=== PATIENT | male | born 1990 | race African-American/Black ===

== ENCOUNTER 2025-01-23 14:24 | Outpatient (AMB) | payer OTHER, SELFPAY ==
--- NOTE | 2025-01-23 14:29 | A.OFFVIS_ITS ---
Intake Visit Reasons: MUSCLE SPASM, DIZZINESS Allergies almond Allergy (Unknown, Verified 01/17/25 13:03) Unknown HPI Comments Details: The patient is a 34-year-old male presenting with recurrent numbness in the right hand and headache management. The numbness is intermittent, typically once a week, beginning in November, lasting around twenty minutes per episode. While some occurrences are associated with heart palpitations, there is no consistent pattern or trigger identifiable. Additionally, he suffers from frequent headaches impacting various regions of the head, characterized by a vice-like quality and increased severity potentially linked to environmental noise. These headaches occasionally persist throughout the day. There is a relevant history of past concussions, but no apparent direct link is established with the current symptoms. An episode of leg muscle locking was also noted during a driving incident, aligning with the period of hand symptoms. Escitalopram use indicates treatment for anxiety, and a family history of heart disease is also pertinent. Despite emergency department visits, no definitive cause for his symptoms has been communicated to him. [facility] Medical History (Updated 01/23/25 @ 14:44 by Bishnu Espitia MD) PTSD (post-traumatic stress disorder) Post concussive syndrome GAYLE (obstructive sleep apnea) Major depression Internal hemorrhoid Hypertension Gastritis Diverticulosis Fatty liver Diabetes mellitus GERD (gastroesophageal reflux disease) Family History (Updated 01/17/25 @ 13:01 by Trae Donis CMA) Father Diabetes mellitus Heart failure CAD (coronary artery disease) GAYLE (obstructive sleep apnea) Maternal Grandmother Lung cancer Review of Systems Const Details: - Neurological: Reports recurrent numbness and tingling in the right hand; rep orts frequent headaches with variable characteristics; reports intermittent heart racing sensation - Musculoskeletal: Reports muscle rigidity in the right leg while driving - Cardiovascular: Denies chest pain; reports heart racing sensation sometimes associated with numbness - Psychiatric: Reports past treatment with escitalopram for anxiety Physical Exam Neuro Other: Mental Status: Alert and oriented to person, place, and time. Normal attention. Normal spontaneous speech, fluency, and comprehension. No obvious issues with mood and memory. Affect is appropriate. Cranial Nerves: CN II: Visual mari full to confrontation, visual acuity intact. CN III, IV, : Pupils equal, round, reactive to light and accommodation. Extraocular movements are normal. CN V: Facial sensation is normal. CN VII: Facial movements symmetrical. CN VIII: Hearing intact to bedside conversation is normal. CN IX, X: Palate elevates symmetrically. CN XI: Shoulder shrug and head turn symmetrical. CN XII: Tongue midline without atrophy or fasciculations. Motor: Bulk and tone normal in all extremities. No significant muscle weakness in arms and legs. No drift. Reflexes: Deep tendon reflexes 2+ and symmetric. Plantar response down-going bilaterally. Coordination: [id number]-[id number] and [id number]-[id number] testing normal. No dysmetria. Gait and Station: No obvious gait abnormality. No ataxia or instability. Sensory: Intact to light touch, pinprick, and vibration. Romberg is negative. Extrapyramidal: Full facial expressions and blinking. No rigidity. Movements are appropriate with no tremor or abnormality. Speech: Normal; no dysarthria or tremor. Assessment & Plan Assessment & Plan (1) Migraine with aura: Code(s): G43.109 - Migraine with aura, not intractable, without status migrainosus Category: Medical Qualifiers: Status migrainosus presence: without status migrainosus Intractability: not intractable Qualified Code(s): G43.109 - Migraine with aura, not intractable, without status migrainosus (2) Migraine equivalent syndrome: Code(s): G43.109 - Migraine with aura, not intractable, without status migrainosus Category: Medical (3) Anxiety disorder with panic attacks: Code(s): F41.9 - Anxiety disorder, unspecified Category: Medical (4) Hand numbness: Code(s): R20.0 - Anesthesia of skin Category: Medical Plan Impression: a: Migraine with aura causing stroke like symptoms b: Migraine equivalent syndrome c: Anxiety/panic disorder Rec: a: Education b: Propranalol 20mg daily c: Please bring CD of brain scans at next visit d: EMG/NCS hands to r/o entrapment neuropathy Orders: Orders NE nerve conduction velocity Today R20.0 - Anesthesia of skin NE electromyogram (EMG) Today R20.0 - Anesthesia of skin Medications: New propranolol 20 mg PO ONCE 90 tabs 0RF Coding Level of Care Code Tele New Pt Level 5 (03099) Diagnoses Migraine with aura and without status migrainosus, not intractable G43.109 Status migrainosus presence: without status migrainosus Intractability: not intractable Migraine equivalent syndrome G43.109 Anxiety disorder with panic attacks F41.9 Hand numbness R20.0
--- OUTSIDE RECORDS SUMMARY | 2025-01-23 14:53 | XMS_ITS | Clinical Summary ---
Author Organization [facility] Address [address] [place] [id number] Care Team Providers Care Ward Secretary Name Role Phone John Wan MD Primary Care Provider [phone] Allergies Active Allergy Reactions Criticality Noted Date Comments Donovan Itching 08/14/2020 (Diagnostic) burning in stomach/chest, belching Medications Medication Sig Dispensed Refills Start Date End Date Status EPINEPHrine 0.15 MG/0.15ML SOAJ Auto-injector Inject 0.15 mg into the muscle once. 0 Active famotidine (PEPCID) 10 MG tablet Take 10 mg by mouth 2 (two) times a day. 0 Active lisinopril (PRINIVIL,ZESTRIL) tablet 5 mg Take 5 mg by mouth daily. 0 Active escitalopram (LEXAPRO) 20 MG tablet Take 20 mg by mouth daily. 0 Active Active Problems Problem Noted Date Diagnosed Date Hypertension 08/15/2020 Major depressive disorder, r ecurrent severe without psychotic features 08/15/2020 Post concussive syndrome 08/15/2020 PTSD (post-traumatic stress disorder) 08/15/2020 Social History Tobacco Use Types Packs/Day Years Used Date Smoking Tobacco: Never Smokeless Tobacco: Never Alcohol Use Standard Drinks/Week Comments No 0 (1 standard drink = 0.6 oz pur e alcohol) Sex and Gender Information Value Date Recorded Sex Assigned at Not on file Gender Identity Not on file Sexual Orientation Not on file Last Filed Vital Signs Vital Sign Reading Time Taken Comments Blood Pressure 141/101 08/15/2020 10:31 AM EST Pulse 69 08/15/2020 10:31 AM EST Temperature 36.6 C (97.9 F) 08/15/2020 10:31 AM EST Respiratory Rate - - Oxygen Saturation 100% 08/15/2020 10: 31 AM EST Inhaled Oxygen Concentration - - Weight 109.5 kg (241 lb 6.4 oz) 021 10:31 AM EST Height 203.2 cm (6' 8 ) 08/15/2020 10:3 1 AM EST Body Mass Index 26.52 08/15/2020 10:31 AM EST Plan of Treatment Health Maintenance Due Date Last Done Comments Hepatitis B Vaccines (1 of 3 - 3-dose series) 1990 Hepatitis C Screening 1990 COVID-19 Vaccine (#1) 06/25/1991 Depression Screening 2002 BMI Counseling 2008 Preventative Health Evaluation 2008 DTap / Tdap / Td (1 - Tdap) 2009 Influenza Vaccine (#1) 2025 Pneumococcal Vaccine Aged Out No long er eligible based on patient's age to complete this topic RSV Ped < 20 months Aged Out No longe r eligible based on patient's age to complete this topic Care Teams Ward Secretary Relationship Specialty Start Date End Date John Wan MD PCP - General Slate Roofer 08/15/20
--- OUTSIDE RECORDS SUMMARY | 2025-01-23 14:53 | XMS_ITS | Clinical Summary ---
Author Organization [facility] Address [address] [place] [address] Phone Care Team Providers Care Model Builder Display Name Role Phone Socorro Hallman MD Primary Care Provider [phone] Allergies Active Allergy Reactions Criticality Noted Date Comments [place] Itching 08/14/2020 (Diagnostic) burning in stomach/chest, belching Medications EPINEPHrine (EpiPen 2-Tao) 0.3 mg/0.3 mL injection Inject 1 Device as directed as needed (anaphylaxis) . Use as directed 11/12/2023 Active ammonium lactate (LAC-HYDRIN) 12 % lotion Apply to soles of feet daily. At night wear socks to bed 07/18/2023 Active famotidine (PEPCID) 20 mg tablet Take 1 tablet by mouth daily for 360 days 90 tablet 1 10/25/2024 Active cetirizine (ZyrTEC) 10 mg tablet Take 1 tablet (10 mg total) by mouth 1 (one) time each day. 30 each 5 12/01/2024 05/30/20 25 Active lisinopriL (PRINIVIL,ZESTR IL) 5 mg tablet Take 1 tablet (5 mg total) by mouth 1 (one) time each day. 90 each 2 12/01/2024 08/29/19 26 Active escitalopram (LEXAPRO) 10 mg tablet Take 1 tablet (10 mg total) by mouth 2 (two) times a day. 90 each 12/02/2024 03/02/20 25 Active Active Problems Problem Noted Date Diagnosed Date Diverticulosis 03/10/2024 GERD (gastroesophageal reflux disease) Assessment & Plan (10/14/2024 6:07 PM EDT): Unstable. Discussed medications for heartburn/GERD. Patient comfortable with sticking with famotidine 40 mg daily, recommended increasing to twice daily as needed. He would prefer to avoid PPIs. Book EGD for further evaluation. Upper Endoscopy: Discussed with patient indications for procedure as well as risks of bleeding, infection, risk of perforation and reaction to anesthesia. Patient is aware of risk of missed lesions. Patient understands and would like to proceed. Alternatives to endoscopic evaluation discussed. Benefit of procedure for screening, diagnostic and therapeutic purposes discussed. The patient acknowledges risks, benefits and alternatives and all questions are answered. Patient is to follow up after the procedure for biopsy results General: Patient aware needs a ride home Not to have liquids for at least two hours before procedure. 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 Sleep study. No significant GAYLE Fatty liver 03/22/2014 Overview (03/10/2024): [facility] 03/28 Gastritis 03/22/2014 Overview (03/10/2024): EGD hosp 03/28 (Hari) Encounters Date Type Department Care Team Description 12/15/2024 9:15 AM EDT Ancillary Procedure [facility] - [address] [place] [phone] Atypical chest pain; Family history of heart disease 12/12/2024 9:45 AM EDT Office Visit Adult Medicine - [address] [phone] Zaid Bravo PA Controlled type 2 diabetes mellitus with diabetic nephropathy, with long-term current use of insulin (CMS/HCC V24, [facility] V28) (Primary Dx); Gastroesophageal reflux disease without esophagitis; Atypical chest pain; Burning feet syndrome; Diverticulosis; Vitamin D deficiency; Family history of heart disease 12/02/2024 9:11 AM EDT - 12/02/2024 11:59 PM EDT Hospital Encounter [facility] Xray [address] [place] [phone] Irritable bowel syndrome, unspecified type Discharge Disposition: Home or Self Care 12/02/2024 8:30 AM EDT Office Visit Gastroenterology - [address] [phone] Philly Ryan PA Irritable bowel syndrome, unspecified type (Primary Dx) 12/02/2024 Telephone Gastroenterology - [address] [place] [phone] Kaia Steele [place] 12/02/2024 Telephone [facility] [phone] Socorro Hallman MD Medication Problem 12/01/2024 3:00 PM EDT [facility] [address] [place], [place] [phone] Socorro Hallman MD Hypertension, unspecified type (Primary Dx); Muscle spasm; Current moderate episode of major depressive disorder, unspecified whether recurrent (CMS/HCC V24, [facility] V28); Gastroesophageal reflux disease, unspecified whether esophagitis present; Dizzy spells; Allergic rhinitis, unspecified seasonality, unspecified trigger 11/21/2024 Telephone Gastroenterology - [address] [place] [phone] Ya Acosta MD 11/18/2024 3:17 PM EDT Anesthesia Event [facility] Endoscopy [address] [place] [phone] Sha Torre MD 11/18/2024 2:11 PM EDT - 11/18/2024 11:59 PM EDT Hospital Encounter [facility] Endoscopy [address] [place] [phone] Ya Acosta MD Couture, Alison, CRNA Saliga, Jesse L, MD GERD (gastroesophageal reflux disease); Epigastric pain Discharge Disposition: Home or Self Care 11/17/2024 Telephone Gastroenterology - [address] [phone] Naomy Gaxiola [place] from Last 3 Months Immunizations Name Administration Dates Next Due Influenza trivalent, with pr eservative (Fluzone; Afluria) 6mo and older 02/22/2015 Balloon SARS-CoV-2 COVID-19, mRNA, LNP-S, preservative free 11/08/2020,10/18/2020 Pneumococcal polysaccharide 23 valent (Pneumovax 23) 2yo and older 08/15/2016 Tdap Tetanus diptheria acell ular pertussis (Boostrix; Adacel) 7yo and older 08/15/2016 Surgical History Surgery Date Site/Laterality Comments UPPER GASTROINTESTINAL ENDOSCOPY 01/12/2020 PROCEDURE: [place] UPPER GI ENDOSCOPY PERFORMED; COMMENT: biopsy pending ESOPHAGOGASTRODUODENOSCOPY PROCEDURE: [place] EGD TRANSORAL BIOPSY SINGLE/MULTIPLE; COMMENT: Performed May 28, [address] Mayela Collins COLONOSCOPY 08/28/2020 diverticulosis as well as internal hemorrhoids Medical History Medical History Date Comments Fatty liver 03/22/2014 DX:Fatty liver; COMMENT: [facility] Microalbuminuria 08/17/2015 DX:Microalbumin uria PTSD (post-traumatic stress disorder) 02/09/2018 DX:PTSD (post-traumatic stress disorder) Major depressive disorder, r ecurrent severe without psychotic features (CMS/HCC V24, CMS/HCC V28) 12/07/2018 DX:Major depressive disorde r, recurrent severe without psychotic features (HCC) Gastritis DX:Gastritis Abdominal bloating DX:Abdominal bloating Belching DX:Belching Obstructive sleep apnea DX:Obstr uctive sleep apnea HTN (hypertension) 04/12/2020 DX:HTN (hyper tension) GERD (gastroesophageal reflux disease) DX:GERD (gastroesophageal reflux disease) GERD (gastroesophageal reflux disease) DX:GERD (gastroesophageal reflux disease) Internal hemorrhoid DX:Internal hemorrhoid Diverticulosis DX:Diverticulosi s Family History Medical History Relation Name Comments No Known Problems Aunt Coronary artery disease Father didn 't do autopsy Diabetes Father Heart failure Father Sleep apnea Father No Known Problems Maternal Grandfather Lung cancer Maternal Grandmother smoker Colon polyps Mother Colon polyps Mother's Brother Hypertension Other 1 No Known Problems Other 2 No Known Problems Paternal Grandfather No Known Problems Paternal Grandmother No Known Problems Sister 1 No Known Problems Sister 2 Other cancer Uncle 1 paternal Other: kidney failure Uncle 2 paternal Stroke Uncle 2 paternal Blindness Neg Hx Cataracts Neg Hx Glaucoma Neg Hx Macular degeneration Neg Hx Strabismus Neg Hx Relation Name Status Comments Aunt Father (Age 53) Maternal Grandfather Maternal Grandmother Mother Alive healthy Mother's Brother Other 1 Other 2 Paternal Grandfather Paternal Grandmother Sister 1 Alive Sister 2 Alive Uncle 1 paternal Uncle 2 paternal Social History Tobacco Use Types Packs/Day Years Used Date Smoking Tobacco: Never Smokeless Tobacco: Never Tobacco Cessation:Counseling Given: Not Answered Alcohol Use Standard Drinks/Week Comments Not Currently 0 (1 standard drink = 0.6 oz pur e alcohol) Interpersonal Safety Answer Date Record ed Physical Abuse 11/18/2024 Verbal Abuse 11/18/2024 Sex and Gender Information Value Date Recorded Sex Assigned at Male 11/18/2024 2:09 PM EDT Legal Sex Male 12:33 AM EST Gender Identity Male 11/18/2024 2:09 PM EDT Sexual Orientation Straight 11/18/2024 2: 09 PM EDT Obstetrics History Last Filed Vital Signs Vital Sign Reading Time Taken Comments Blood Pressure 120/72 12/15/2024 9:18 AM EDT Pulse 68 12/12/2024 9:27 AM EDT Temperature 36.6 C (97.8 F) 12/12/2024 9:27 AM EDT Respiratory Rate 18 11/18/2024 3:52 PM EDT Oxygen Saturation 98% 11/18/2024 3:52 PM EDT Inhaled Oxygen Concentration - - Weight 128 kg (283 lb) 12/15/2024 9:18 AM EDT Height 203.2 cm (6' 8 ) 12/12/2024 9:27 AM EDT Body Mass Index 31.09 12/12/2024 9:27 AM EDT Plan of Treatment Upcoming Encounters Date Type Department Care Team (Late st Contact Info) Description 02/20/2025 1:00 PM EDT Office Visit Adult Medicine - [place] [address] [place] [phone] Iraida Carpio PA [address] [place] [address] 03/02/2025 8:20 AM EDT Office Visit [facility] [address] [facility] [address] [place] [phone] Myrtle Carnes MD [address] [place] [address] 03/03/2025 3:10 PM EDT Office Visit Gastroenterology - [address] [facility] [address] [place] [phone] Philly Ryan PA 299 [facility] [address] [place] [address] 05/23/2025 12:30 PM EST Office Visit Nephrology - [address] [phone] Ricardo Tellez MD [address] [facility] [address] [place] [phone] 06/05/2025 3:00 PM EST Office Visit Internal Medicine - [address] [phone] Socorro Hallman MD [address] [place], [place] Health Maintenance Due Date Last Done Comments Diabetes: Annual Retina Eye Exam 2000 Hepatitis B Vaccines (1 of 3 - 19+ 3-dose series) 2009 Pneumococcal Vaccine: Pediatrics (0 to 5 Years) and At-Risk Patients (6 to 49 Years) (2 of 2 - PCV) 08/15/2017 08/15/2016 Social Influencers of Health Screening 05/24/2022 COVID-19 Vaccine (2023- season) 2024 11/08/2020, 10/18/2020 Depression Screening 06/15/2024 12/16/2023 Diabetes: Annual Foot Exam 11/11/2024 11/12/2023 Influenza Vaccine (#1) 2025 02/22/2015 Diabetes: Annual Urine Albumin-Creatinine Ratio (uACR) 05/20/2025 05/20/2024, 05/20/2024, 04/27/2023 Diabetes: Blood Sugar Control Test (HGBA1C) 06/13/2025 12/12/2024, 07/07/2024, 11/13/2023, Additional history exists Diabetes: Annual GFR (Glomerular Filtration Rate) 07/07/2025 07/07/2024, 05/20/2024, 05/20/2024, Additional history exists Hypertension/CHF/CAD Annual BMP Blood Test 07/07/2025 07/07/2024, 05/20/2024, 05/20/2024, Additional history exists DTaP,Tdap,and Td Vaccines (2 - Td or Tdap) 08/15/2026 08/15/2016 Cholesterol Screening (Lipid Panel) 07/07/2029 07/07/2024, 11/13/2023, 11/13/2023 HIV Screening Completed 07/07/2024 Hepatitis C Screening Completed 07/07/2024 HIB Vaccines Aged Out No longer eligi ble based on patient's age to complete this topic HPV Vaccines Aged Out No longer eligi ble based on patient's age to complete this topic Hepatitis A Vaccines Aged Out No long er eligible based on patient's age to complete this topic IPV Vaccines Aged Out No longer eligi ble based on patient's age to complete this topic MMR Vaccines Aged Out No longer eligi ble based on patient's age to complete this topic Meningococcal ACWY Vaccine Aged Out N o longer eligible based on patient's age to complete this topic Meningococcal B Vaccine Aged Out No l onger eligible based on patient's age to complete this topic RSV Immunization Patients Under 20 months Aged Out No longer eligible based on patient's age to complete this topic Varicella Vaccines Aged Out No longer eligible based on patient's age to complete this topic Procedures Procedure Name Priority Date/Time Associated Diagnosis Comments STRESS TEST ONLY EXERCISE Routine 12/15/2024 10:51 AM EDT Atypical chest pain Family history of heart disease VITAMIN D 25 HYDROXY Routine 12/12/2024 10:31 AM EDT Vitamin D deficiency HEMOGLOBIN A1C Routine 12/12/2024 10:31 AM EDT Controlled type 2 diabetes mellitus with diabetic nephropathy, with long-term current use of insulin ([facility] V24, [facility] V28) XR ABDOMEN 1 VIEW Routine 12/02/2024 9:1 7 AM EDT Irritable bowel syndrome, unspecified type EGD Routine 11/18/2024 3:31 PM EDT GERD (gastroesophageal reflux disease) Epigastric pain TISSUE EXAM Routine 11/18/2024 3:24 PM EDT GERD (gastroesophageal reflux disease) Epigastric pain HEPATITIS C ANTIBODY Routine 07/07/2024 4:17 PM EST Screen for STD (sexually transmitted disease) HIV 1, 2 ANTIBODY, P24 ANTIGEN WITH REFLEX TO DIFFERENTIATION Routine 07/07/2024 4:17 PM EST Screen for STD (sexually transmitted disease) COMPREHENSIVE METABOLIC PANEL Routine 07/07/2024 4:17 PM EST Controlled type 2 diabetes mellitus with diabetic nephropathy, without long-term current use of insulin ([facility] V24, [facility] V28) LIPID PANEL WITH REFLEX TO DIRECT LDL Routine 07/07/2024 4:17 PM EST Controlled type 2 diabetes mellitus with diabetic nephropathy, without long-term current use of insulin (CMS/HCC V24, CMS/HCC V28) MICROALBUMIN CREATININE URINE RATIO Routine 05/20/2024 11:40 AM EST Proteinuria DEPRESSION SCREENING Routine 12/16/2023 DIABETES FOOT EXAM Routine 11/12/2023 from Last 3 Months or Most Recently Relevant to Health Maintenance Results * Exercise stress test (12/15/2024 10:51 AM EDT) Target HR 159 bpm CV STRESS ONLY Baseline HR 65 bpm CV STRES S ONLY Peak HR 171 bpm CV STRESS ONLY Estimated workload 10.3 METS CV STRESS ONLY Percent HR 91 % CV STRESS ONLY Exercise/injec tion duration (min) 8 min CV STRESS ONLY Exercise/injec tion duration (sec) 59 sec CV STRESS ONLY Max HR Percent 91 % CV ST RESS ONLY Baseline SBP 120 mmHg CV STRE SS ONLY Baseline DBP 72 mmHg CV STRE SS ONLY Peak SBP 160 mmHg CV STRESS ONLY Peak DBP 90 mmHg CV STRESS ONLY Rate Pressure Product 27,360.0 mmHg*bpm CV STRESS ONLY Anatomical Region Laterality Modality Cardiac Diagnost ic Narrative 12/15/2024 1:40 PM EDT Normal exercise EKG stress test at a target heart rate and adequate functional capacity. Stress ECG was normal. Patient reported no symptoms during the stress test. Exercise capacity was average. No arrhythmia. Stress Findings A Juan protocol stress test was performed. Overall, the patient's exercise capacity was average. The patient reached stage 3. Total stress time was 8 min and 59 sec. The test was stopped because the patient experienced fatigue. The patient reported no symptoms during the stress test. ECG 33-year-old male with a past medical history significant for intermittent chest discomfort into rule out ischemia. Patient on lisinopril during testing. Baseline EKG sinus rhythm and normal EKG There were no arrhythmias during stress. There were no arrhythmias during recovery. The result of the stress ECG was negative for ischemia. Procedure Note Oliver Smith NP / Lilian Arcos MD - 12/15/2024 Normal exercise EKG stress test at a target heart rate and adequatefunctional capacity. Stress ECG was normal. Patient reported no symptoms during the stress test. Exercise capacitywas average. No arrhythmia. us Zaid ROMAN CV STRESS PROCEDURES Final Res ult * Vitamin D 25 hydroxy (12/12/2024 10:31 AM EDT) [facility] Vit D, 25-Hydroxy 34.9 30.0 - 80.0 ng/mL LAB CHEMISTRY METHOD 12/12/2024 12:30 PM EDT [facility] Blood Venous blood specimen / Unknown Venipuncture / Unknown 12/12/2024 10:31 AM EDT 12/12/2024 10:31 AM EDT us Zaid ROMAN LAB BLOOD ORDERABLES Final Res ult Performing Organization Address [facility] de Phone Number [facility] [address] [place] [address], [place] [phone] * Hemoglobin A1c (12/12/2024 10:31 AM EDT) [facility] Hemoglobin A1C 5.6 <6.5 % LAB CHEMISTRY METHOD 12/12/2024 12:45 PM EDT [facility] Mean Bld Glu Estim. 114 mg/dL LAB CHEMISTRY METHOD 12/12/2024 12:45 PM EDT [facility] Blood Venous blood specimen / Unknown Venipuncture / Unknown 12/12/2024 10:31 AM EDT 12/12/2024 10:31 AM EDT us Zaid ROMAN LAB BLOOD ORDERABLES Final Res ult Performing Organization Address [facility]/ZIP Co de Phone Number [facility] [address] [place] [address], * XR Abdomen 1 View (12/02/2024 9:17 AM EDT) Anatomical Region Laterality Modality Body Radiographic Tayla ging 12/02/2024 12:0 6 PM EDT Impressions 12/02/2024 12:07 PM EDT Nonobstructive bowel gas pattern. There is evidence of mild constipation, as also seen on 10/14/2024. Code 53346 -------- FINAL REPORT -------- Dictated By: Nehemiah Gama Dictated Date: 12/02/2024 12:06 ET Assigned Physician: Nehemiah Gama Reviewed and Electronically Signed By: Nehemiah Gama Signed Date: 12/02/2024 12:07 ET Workstation ID: [id number] Transcribed By: Self Edit Transcribed Date: 12/02/2024 12:06 ET Narrative 12/02/2024 12:07 PM EDT HISTORY: The patient is a 33-year-old male with abdominal pain, supine radiographs of the abdomen demonstrate for follow-up of constipation. FINDINGS: Supine radiographs of the abdomen again demonstrate 4 nonrib-bearing lumbar vertebrae, a congenital variant, as also seen on the prior study performed 10/14/2024. The bowel gas pattern is nonobstructive. A moderate amount of fecal material is again seen in the colon from the mid ascending colon to the mid descending colon, consistent with mild constipation, unchanged. No mass or radiopaque calculus is seen. Procedure Note Nehemiah Gama MD - 12/02/2024 HISTORY: The patient is a 33-year-old male with abdominal pain, supineradiographs of the abdomen demonstrate for follow-up of constipation. FINDINGS: Supine radiographs of the abdomen again demonstrate 4nonrib-bearing lumbar vertebrae, a congenital variant, as also seen on theprior study performed 10/14/2024. The bowel gas pattern is nonobstructive.A moderate amount of fecal material is again seen in the colon from themid ascending colon to the mid descending colon, consistent with mildconstipation, unchanged. No mass or radiopaque calculus is seen. IMPRESSION: Nonobstructive bowel gas pattern. There is evidence of mild constipation,as also seen on 10/14/2024. Code 83993 -------- FINAL REPORT -------- Dictated By: Nehemiah Gama Dictated Date: 12/02/2024 12:06 ET Assigned Physician: Nehemiah Gama Reviewed and Electronically Signed By: Nehemiah Gama Signed Date: 12/02/2024 12:07 ET Workstation ID: [id number] Transcribed By: Self Edit Transcribed Date: 12/02/2024 12:06 ET Philly ROMAN IMG XR PROCEDURES Final Result * EGD Anesthesia - MAC; SP ENDOSCOPY (11/18/2024 3:31 PM EDT) Anatomical Region Laterality Modality Endoscopy 11/18/2024 3:10 PM EDT Impressions 11/18/2024 3:29 PM EDT - Normal esophagus. Biopsied. - Normal stomach. Biopsied. - Normal examined duodenum. Recommendation: - Continue present medications. - Await pathology results. - Return to GI office as previously scheduled. Narrative 11/18/2024 3:29 PM EDT [facility] GI Patient Name: Jeet Pathak Procedure Date: 11/18/2024 3:10 PM Date of : 1990 Age: 33 Gender: Male Note Status: Finalized Attending MD: Ya Acosta MD, Procedure Date No Time: 11/18/2024 Procedure: Upper GI endoscopy Indications: Epigastric abdominal pain, Follow-up of gastro-esophageal reflux disease Providers: Ya Acosta MD Referring MD: Socorro Hallman MD Medicines: Propofol per Anesthesia Complications: No immediate complications. Estimated Blood Loss: Estimated blood loss: none. Procedure: Pre-Anesthesia Assessment: - ASA Grade Assessment: II - A patient with mild systemic disease. After obtaining informed consent, the endoscope was passed under direct vision. Throughout the procedure, the patient's blood pressure, pulse, and oxygen saturations were monitored continuously.The Endoscope was introduced through the mouth, and advanced to the second part of duodenum. The upper GI endoscopy was accomplished without difficulty. The patient tolerated the procedure well. Findings: The examined esophagus was normal. Biopsies were taken with a cold forceps for histology. The entire examined stomach was normal. Biopsies were taken with a cold forceps for histology. The cardia and gastric fundus were normal on retroflexion. The examined duodenum was normal. Procedure Code(s): --- Professional --- 47074, Esophagogastroduodenoscopy, flexible, transoral; with biopsy, single or multiple Diagnosis Code(s): --- Professional --- R10.13, Epigastric pain K21.9, Gastro-esophageal reflux disease without esophagitis CPT copyright 2020 [employer]. All rights reserved. The codes documented in this report are preliminary and upon health information coder review may be revised to meet current compliance requirements. Ya Acosta MD 11/18/2024 3:29:36 PM This report has been signed electronically.Ya Acosta MD Number of Addenda: 0 Note Initiated On: 11/18/2024 3:10 PM Scope In: Scope Out: Endoscopy Department at [facility] - [address] [place] [phone] Procedure Note Ya Acosta MD - 11/18/2024 [facility] GI Patient Name: Jeet Pathak Procedure Date: 11/18/2024 3:10 PM Date of : 1990 Age: 33 Gender: Male Note Status: Finalized Attending MD: Ya Acosta MD, Procedure Date No Time: 11/18/2024 Procedure: Upper GI endoscopy Indications: Epigastric abdominal pain, Follow-up of gastro-esophageal reflux disease Providers: Ya Acosta MD Referring MD: Socorro Hallman MD Medicines: Propofol per Anesthesia Complications: No immediate complications. Estimated Blood Loss: Estimated blood loss: none. Procedure: Pre-Anesthesia Assessment: - ASA Grade Assessment: II - A patient with mild systemic disease. After obtaining informed consent, the endoscope was passed under direct vision. Throughout theprocedure, the patient's blood pressure, pulse, and oxygen saturations were monitored continuously.TheEndoscope was introduced through the mouth, and advanced tothe second part of duodenum. The upper GI endoscopy was accomplished without difficulty. The patienttolerated the procedure well. Findings: The examined esophagus was normal. Biopsies weretaken with a cold forceps for histology. The entire examined stomach was normal. Biopsieswere taken with a cold forceps for histology. The cardia and gastric fundus were normal on retroflexion. The examined duodenum was normal. Procedure Code(s): --- Professional --- 38317, Esophagogastroduodenoscopy, flexible, transoral; with biopsy, single or multiple Diagnosis Code(s): --- Professional --- R10.13, Epigastric pain K21.9, Gastro-esophageal reflux disease without esophagitis CPT copyright 2020 [employer]. All rights reserved. The codes documented in this report are preliminary and upon health information coder reviewmay be revised to meet current compliance requirements. Ya Acosta MD 11/18/2024 3:29:36 PM This report has been signed electronically.Ya Acosta MD Number of Addenda: 0 Note Initiated On: 11/18/2024 3:10 PM Scope In: Scope Out: Endoscopy Department at [facility] - [address] [place] [id number] IMPRESSION: - Normal esophagus. Biopsied. - Normal stomach. Biopsied. - Normal examined duodenum. Recommendation: - Continue present medications. - Await pathology results. - Return to GI office as previously scheduled. Ya Acosta MD GI~PROCEDURE ORDERABLES Final Result * Tissue exam (11/18/2024 3:24 PM EDT) Final Diagnosis A. Stomach, biopsy: - Gastric antral and oxyntic type mucosa with minimal chronic inflammation. - No active gastritis and no intestinal metaplasia identified. - No Helicobacter pylori identified on hematoxylin and eosin stained sections. B. Esophagus, biopsy: - Esophageal squamous mucosa with a focally prominent polymorphous lymphoid population displaced into the squamous epithelium. (See note.) Note: A prominent population of lymphocytes is noted in a space in the superficial epithelium in one tissue fragment. Given the normal endoscopic findings (per report) and the lack of an increase in intraepithelial lymphocytes elsewhere in any of the tissue fragments, this is interpreted as an artifactual displacement of reactive lymphocytes. 11/22/2024 10:49 AM EDT [facility] LAB Gross Description A. Stomach, gaastric biopsies: Labeled gastric b stomach . Received in formalin are three soft, luu to pale red tissue fragments ranging from 0.25 cm to 0.4 cm in greatest diameter, which are wrapped in paper and submitted in toto in one cassette, three pieces, multiple levels. B. Esophagus, biopsies: Labeled esophagus . Received in formalin are four soft, white tissue fragments ranging from 0.2 cm to 0.45 cm in greatest diameter, which are wrapped in paper and submitted in toto in one cassette, four pieces, multiple levels. TS 11/22/2024 10:49 AM EDT [facility] Disclaimer Unless otherwise specified, all tissue is 10% NB formalin fixed and paraffin embedded. 11/22/2024 10:49 AM EDT [facility] Tissue Stomach structure / Unknown 11/18/2024 3:24 PM EDT 11/21/2024 5:14 AM EDT Tissue specimen (specimen) Esophageal structure / Unknown 11/18/2024 3:25 PM EDT 11/21/2024 5:14 AM EDT us Ya Acosta MD LAB PATHOLOGY ORDERABLES Final Result Performing Organization Address [facility]/ZIP Co de Phone Number [facility] [address] [place] [address], * Hepatitis C antibody (07/07/2024 4:17 PM EST) Hepatitis C Antibody Negative Negative LAB CHEMISTRY METHOD 07/07/2024 7:07 PM EST [facility] Blood Venous blood specimen / Unknown Venipuncture / Unknown 07/07/2024 4:17 PM EST 07/07/2024 4:17 PM EST Iraida ROMAN LAB BLOOD ORDERABLES Final Result [facility] [address] [place] [address], [place] [phone] * HIV 1,2 antibody, p24 antigen with reflex to differentiation (07/07/2024 4:17 PM EST) [facility] HIV Combo AB/AG Negative Negative LAB CHEMISTRY METHOD 07/07/2024 7:07 PM [facility] Blood Venous blood specimen / Unknown Venipuncture / Unknown 07/07/2024 4:17 PM EST 07/07/2024 4:17 PM EST [facility] - 07/07/2024 7:07 PM EST This assay is a 4th generation assay allowing for earlier detection of HIV infection by detecting the presence of the HIV-1 p24 antigen as well as the traditional antibodies to HIV type 1 (including group O) and type 2. Use of a 4th generation assay is the current CDC recommendation for HIV screening. Iraida ROMAN LAB BLOOD ORDERABLES Final Result [facility] [address] [place] [address], [place] [phone] * Lipid panel with reflex to direct LDL (07/07/2024 4:17 PM EST) [facility] Cholesterol 170 0 - 200 mg/dL LAB CHEMISTRY METHOD 07/07/2024 6:44 PM [facility] Triglycerides 75 0 - 150 mg/dL LAB CHEMISTRY METHOD 07/07/2024 6:44 PM [facility] HDL 57 >=40 mg/dL LAB CHEMISTRY METHOD 07/07/2024 6:44 PM [facility] LDL Calculated 98 0 - 100 mg/dL LAB CHEMISTRY METHOD 07/07/2024 6:44 PM [facility] VLDL Cholesterol Ac 15 mg/dL LAB CHEMISTRY METHOD 07/07/2024 6:44 PM [facility] Non HDL Chol. (LDL+VLDL) 113 <145 mg/dL LAB CHEMISTRY METHOD 07/07/2024 6:44 PM [facility] Chol/HDL Ratio 3.0 0.0 - 4.4 LAB CHEMISTRY METHOD 07/07/2024 6:44 PM [facility] Blood Venous blood specimen / Unknown Venipuncture / Unknown 07/07/2024 4:17 PM EST 07/07/2024 4:17 PM EST us Iraida ROMAN LAB BLOOD ORDERABLES Final Result [facility] [address] [place] [address], * Comprehensive metabolic panel (07/07/2024 4:17 PM EST) Sodium 137 133 - 145 mmol/L LAB CHEMISTRY METHOD 07/07/2024 6:44 PM [facility] Potassium 3.9 3.5 - 5.5 mmol/L LAB CHEMISTRY METHOD 07/07/2024 6:44 PM [facility] Chloride 106 96 - 110 mmol/L LAB CHEMISTRY METHOD 07/07/2024 6:44 PM [facility] CO2 28 21 - 32 mmol/L LAB CHEMISTRY METHOD 07/07/2024 6:44 PM [facility] Anion Gap 3 3 - 11 LAB CHEMISTRY METHOD 07/07/2024 6:44 PM [facility] Glucose 83 70 - 100 mg/dL LAB CHEMISTRY METHOD 07/07/2024 6:44 PM [facility] BUN 12 5 - 25 mg/dL LAB CHEMISTRY METHOD 07/07/2024 6:44 PM [facility] Creatinine 0.94 0.70 - 1.30 mg/dL LAB CHEMISTRY METHOD 07/07/2024 6:44 PM [facility] eGFR 110 >=60 mL/min/1. 73m2 LAB CHEMISTRY METHOD 07/07/2024 6:44 PM [facility] Comment:Calculation based on the Chronic Kidney Disease Epidemiology Collaboration (CKD-EPI) equation refit without adjustment for race. BUN/Creatinine Ratio 12.8 LAB CHEMISTRY METHOD 07/07/2024 6:44 PM [facility] Calcium 9.0 8.5 - 10.5 mg/dL LAB CHEMISTRY METHOD 07/07/2024 6:44 PM [facility] AST (SGOT) 13 10 - 42 unit/L LAB CHEMISTRY METHOD 07/07/2024 6:44 PM [facility] ALT (SGPT) 28 10 - 60 unit/L LAB CHEMISTRY METHOD 07/07/2024 6:44 PM [facility] Alkaline Phosphatase 72 42 - 121 unit/L LAB CHEMISTRY METHOD 07/07/2024 6:44 PM [facility] Total Protein 7.8 6.0 - 8.0 g/dL LAB CHEMISTRY METHOD 07/07/2024 6:44 PM [facility] Albumin 4.4 3.2 - 5.0 g/dL LAB CHEMISTRY METHOD 07/07/2024 6:44 PM [facility] Total Bilirubin 0.6 0.0 - 1.4 mg/dL LAB CHEMISTRY METHOD 07/07/2024 6:44 PM [facility] Blood Venous blood specimen / Unknown Venipuncture / Unknown 07/07/2024 4:17 PM EST 07/07/2024 4:17 PM EST us Iraida ROMAN LAB BLOOD ORDERABLES Final Result [facility] [address] [place] [address], * Microalbumin creatinine urine ratio (05/20/2024 11:40 AM EST) Creatinine, Urine 48.0 mg/dL LAB CHEMISTRY METHOD 05/20/2024 2:11 PM EST [facility] Microalb, Ur 6.1 0.0 - 29.0 mg/L LAB CHEMISTRY METHOD 05/20/2024 2:11 PM EST [facility] Microalb/Creat Ratio 13 <30 mg/g creat LAB CHEMISTRY METHOD 05/20/2024 2:11 PM EST [facility] Urine Urine specimen obtained by clean catch procedure / Unknown Non-blood Collection / Unknown 05/20/2024 11:40 AM EST 05/20/2024 11:40 AM EST Ricardo Tellez MD LAB URINE ORDERABLES Final Res ult [facility] [address] [place] [address], * Depression Screening (12/16/2023) Pathologist [facility] Depression Screening abstracted Historical Provider HEALTH MAINTENANCE Final Result * Diabetes Foot Exam (11/12/2023) Pathologist [facility] Diabetes: Annual Foot Exam abstracted Historical Provider HEALTH MAINTENANCE Final Result from Last 3 Months or Most Recently Relevant to Health Maintenance Insurance [employer] Care Teams Model Builder Display Relationship Specialty Start Date End Date Socorro Hallman MD [address] [place] [phone] PCP - General Internal Medicine 08/11/24
--- OUTSIDE RECORDS SUMMARY | 2025-01-23 14:53 | XMS_ITS | Clinical Summary ---
Author Organization [facility] Facility Address [address] [address] Care Team Providers Care Assistant Sales Director Name Role Phone Unavailable Primary Care Provider Unavailabl e Social History Tobacco Use Types Packs/Day Years Used Date Smoking Tobacco: Never Assessed Sex and Gender Information Value Date Recorded Sex Assigned at Not on file Legal Sex Male 12:46 PM EST Gender Identity Not on file Sexual Orientation Not on file Plan of Treatment Health Maintenance Due Date Last Done Comments Hepatitis B Vaccine (1 of 3 - 19+ 3-dose series) 12/23 Pneumococcal Vaccine: Peds ( 0 to 5 Years) and At-Risk Patients (6 to 49 Years) (1 of 2 - PCV) 2009 Influenza Vaccine (#1) 2025
== END 2025-01-23 14:54 | disposition home or self-care (01) ==
LOC: HO.HSM 14:24
PROVIDERS: PCP Internal Medicine; Referring Provider Internal Medicine; Visit Provider Psychiatry & Neurology Neurology
DX: G43.109 Migraine with aura, not intractable, without status migrainosus (principal); F41.9 Anxiety disorder, unspecified; R20.0 Anesthesia of skin
CPT/HCPCS: 99204

== ENCOUNTER → 2025-01-23 14:24 | Outpatient (BNVA) | payer OTHER, SELFPAY | PROVIDERS: PCP Internal Medicine; Referring Provider Internal Medicine; Visit Provider Psychiatry & Neurology Neurology | DX: G43.109 Migraine with aura, not intractable, without status migrainosus (principal); R20.0 Anesthesia of skin; F41.9 Anxiety disorder, unspecified | CPT/HCPCS: 99202 ==